=== PATIENT | male | born 1960 | race Caucasian/White ===

== ENCOUNTER → 2023-09-06 10:48 | Outpatient (BNVA) | payer MEDICARE, BC, MEDICAID, SELFPAY | PROVIDERS: Visit Provider Family Medicine Adult Medicine | DX: M54.2 Cervicalgia (principal); G89.29 Other chronic pain; M54.12 Radiculopathy, cervical region; Z87.828 Personal history of other (healed) physical injury and trauma | CPT/HCPCS: 80053; 80061; 84443; 85025 ==

== ENCOUNTER 2023-09-07 10:00 | Outpatient (CLI) | payer BC, MEDICARE, MEDICAID, SELFPAY ==
--- NOTE | 2023-09-07 10:10 | XR_ITS ---
WS: [id number] Exam: XR cervical spine min 6V [id number] Date/Time of Exam: 09/07/2023 10:22 AM Reason For Exam: neck pain No fracture or dislocation. Minimal degenerative anterolisthesis of C3 on C4 of about 2 mm. Also slig ht degenerative anterolisthesis of C4 on C5. No significant flexion or extension instability. Moderat e narrowing of the C5-6 disc. Normal paraspinal soft tissues. Narrowing of the bony neural foramina a t C3-4 on the RIGHT. The remaining neural foramina appear to be patent. The odontoid is intact. Mild to moderate facet DJD at all levels. IMPRESSION: 1. Mild degenerative anterolisthesis of C3 on C4 and C4 on C5. 2. No fracture or malalignment. No significant flexion or extension instability. 3. Degenerative changes as noted above.
== END 2023-09-07 10:01 | disposition home or self-care (01) ==
LOC: RAD 10:06
PROVIDERS: PCP Family Medicine Adult Medicine; Visit Provider Family Medicine Adult Medicine
DX: M54.12 Radiculopathy, cervical region; M54.2 Cervicalgia; M47.892 Other spondylosis, cervical region
CPT/HCPCS: 72052

== ENCOUNTER → 2023-10-20 08:25 | Outpatient (BNVA) | payer BC, MEDICARE, MEDICAID, SELFPAY | PROVIDERS: PCP Family Medicine Adult Medicine; Referring Provider Family Medicine Adult Medicine; Visit Provider Orthopaedic Surgery | DX: M54.2 Cervicalgia (principal) | CPT/HCPCS: 72050 ==

== ENCOUNTER 2023-11-24 16:12 | Outpatient (CLI) | payer MEDICARE, MEDICAID, SELFPAY ==
--- NOTE | 2023-11-24 16:45 | MR_ITS ---
WS: [id number] MRI CERVICAL SPINE NONCONTRAST HISTORY: neck pain COMPARISON: None available. Technique: Multiplanar, multisequence noncontrast imaging of the cervical spine. Normal cervical alignment with no compression fracture or significant disc space narrowing. Signal within the cervical cord is normal. Visualized posterior fossa is unremarkable. Craniocervical junction, C1 and C2 relationship, odontoid process and soft tissues are normal. C2-C3: Normal. C3-C4: Central disc protrusion is small. Small foraminal osteophytes. Very mild encroachment upon the ventral thecal sac. Mild bilateral foraminal stenosis. C4-C5: Small central disc protrusion with moderate facet arthritis. No central stenosis. Moderate to severe RIGHT and mild LEFT foraminal stenosis. Increased T2 signal in the RIGHT facet joint. C5-C6: Diffuse annular disc bulging with mild facet joint arthritis. Small disc osteophyte complex pa racentral and foraminal. Moderate bilateral foraminal stenosis, greater on the LEFT. Mild encroachmen t upon the paravertebral thecal sac. Mild central stenosis. C6-C7: Very mild disc bulging and osteophytosis. No stenosis. C7-T1: Shallow central disc protrusion. No stenosis. Paraspinal soft tissue are normal. MR/MR cervical spin wo con* [id number] IMPRESSION: 1. Multilevel osteophytosis and facet arthritis resulting in foraminal stenosi s. 2. C4-5: Small central disc protrusion. Moderate facet arthritis resulting in moderate to severe RIGHT and mild LEFT foraminal stenosis. 3. C5-6: Small disc osteophyte complex paracentral and foraminal. Moderate carmen ateral foraminal stenosis, greater on the LEFT. 4. C3-4: Mild bilateral foraminal stenosis. 5. Increased T2 signal in the RIGHT C4-5 facet joint. Consider acute synovitis /arthropathy.
== END 2023-11-24 16:13 | disposition home or self-care (01) ==
LOC: RAD 16:12
PROVIDERS: PCP Family Medicine Adult Medicine; Visit Provider Orthopaedic Surgery
DX: M47.892 Other spondylosis, cervical region (principal); M25.78 Osteophyte, vertebrae; M50.322 Other cervical disc degeneration at C5-C6 level; M50.323 Other cervical disc degeneration at C6-C7 level; M48.02 Spinal stenosis, cervical region
CPT/HCPCS: 72141

== ENCOUNTER 2024-07-10 08:41 | Outpatient (CLI) | payer MEDICARE, MEDICAID, SELFPAY ==
--- NOTE | 2024-07-10 09:00 | CT_ITS ---
WS: [id number] LDCT LUNG CANCER SCREENING HISTORY: lung cancer screening TECHNIQUE: Axial imaging performed from the apices to 1 cm below the costophrenic angles. Coronal and sagittal reformats are submitted with axial MIP series. All CT scans at [facility] use at least one of these dose optimization techniques: automated exposure control; mA and/or kV adjustment per patient size (includes targeted exams where dose is matched to clinical indication); or iterativ e reconstruction. DLP: 69.27 mGy.cm DIvol: Mean CTDIvol: 1.20 (mGy) COMPARISON: None available. Diagnostic quality: Satisfactory Lungs: Moderate pulmonary hyperexpansion. Paraseptal emphysema. 4 mm noncalcified nodule at the lingu la. 3 mm noncalcified nodule RIGHT upper lobe. 5 mm noncalcified nodule RIGHT middle lobe. 3 mm nonca lcified nodule RIGHT lung base, at the diaphragmatic surface. Noncalcified 4 mm nodule LEFT lower lob e. No endobronchial lesions. Heart: Normal size heart with no pericardial effusion.. Other findings: Scattered coronary artery calcifications. Normal size aorta and pulmonary artery. Jesica y minimal thoracic aorta atherosclerosis. 9 mm low-attenuation mass LEFT lobe of the liver is probabl y a small hemangioma or cyst. No adrenal mass. CT/CT lung screening [id number] IMPRESSION: LUNG-RADS: 2-Benign Appearance or Behavior FOLLOW UP: 12 Month: Continue annual screening with LDCT OTHER FINDINGS (S MODIFIER): None.
== END 2024-07-10 08:42 | disposition home or self-care (01) ==
PROVIDERS: PCP Family Medicine Adult Medicine; Visit Provider Family Medicine
DX: F17.219 Nicotine dependence, cigarettes, with unspecified nicotine-induced disorders (principal); Z12.2 Encounter for screening for malignant neoplasm of respiratory organs; R91.8 Other nonspecific abnormal finding of lung field; J43.9 Emphysema, unspecified; I25.84 Coronary atherosclerosis due to calcified coronary lesion; R16.0 Hepatomegaly, not elsewhere classified
CPT/HCPCS: 71271

== ENCOUNTER → 2024-07-24 12:42 | Outpatient (BNVA) | payer MEDICARE, MEDICAID, SELFPAY | PROVIDERS: PCP Family Medicine Adult Medicine; Visit Provider Orthopaedic Surgery | DX: M54.2 Cervicalgia (principal); M47.22 Other spondylosis with radiculopathy, cervical region | CPT/HCPCS: 99214 ==

== ENCOUNTER → 2024-08-07 13:02 | Outpatient (BNVA) | payer MEDICARE, MEDICAID, SELFPAY | PROVIDERS: PCP Family Medicine Adult Medicine; Referring Provider Family Medicine; Visit Provider Nurse Practitioner Family | DX: L82.1 Other seborrheic keratosis (principal); L81.4 Other melanin hyperpigmentation; L57.8 Other skin changes due to chronic exposure to nonionizing radiation; Z08 Encounter for follow-up examination after completed treatment for malignant neoplasm; Z85.828 Personal history of other malignant neoplasm of skin; D48.5 Neoplasm of uncertain behavior of skin | CPT/HCPCS: 11102; 99213 ==

== ENCOUNTER → 2024-10-08 13:44 | Outpatient (BNVA) | payer MEDICARE, MEDICAID, SELFPAY | PROVIDERS: PCP Family Medicine; Referring Provider Orthopaedic Surgery; Visit Provider Anesthesiology Pain Medicine | DX: M54.2 Cervicalgia (principal); G89.29 Other chronic pain | CPT/HCPCS: 99204 ==

== ENCOUNTER → 2024-10-23 13:16 | Outpatient (BNVA) | payer MEDICARE, MEDICAID, SELFPAY | PROVIDERS: PCP Family Medicine; Visit Provider Orthopaedic Surgery | DX: Z01.818 Encounter for other preprocedural examination (principal); M54.2 Cervicalgia; G89.29 Other chronic pain | CPT/HCPCS: 80053; 81001; 85025; 99214 ==

== ENCOUNTER → 2024-10-24 12:58 | Outpatient (BNVA) | payer MEDICARE, MEDICAID, SELFPAY | PROVIDERS: PCP Family Medicine; Visit Provider Dermatology | DX: L81.4 Other melanin hyperpigmentation (principal); D22.5 Melanocytic nevi of trunk; Z08 Encounter for follow-up examination after completed treatment for malignant neoplasm; Z85.828 Personal history of other malignant neoplasm of skin; C44.519 Basal cell carcinoma of skin of other part of trunk | CPT/HCPCS: 17262; 99213 ==

== ENCOUNTER → 2025-02-26 10:15 | Outpatient (BNVA) | payer MEDICARE, MEDICAID, SELFPAY | PROVIDERS: PCP Family Medicine; Visit Provider Nurse Practitioner Family | DX: L81.4 Other melanin hyperpigmentation (principal); D22.5 Melanocytic nevi of trunk; Z08 Encounter for follow-up examination after completed treatment for malignant neoplasm; Z85.828 Personal history of other malignant neoplasm of skin | CPT/HCPCS: 99213 ==

== ENCOUNTER → 2025-04-15 15:44 | Outpatient (BNVA) | payer MEDICARE, MEDICAID, SELFPAY | PROVIDERS: PCP Family Medicine; Visit Provider Family Medicine | DX: I10 Essential (primary) hypertension (principal); N40.0 Benign prostatic hyperplasia without lower urinary tract symptoms; R73.09 Other abnormal glucose | CPT/HCPCS: 80053; 83036; 84153 ==

== ENCOUNTER → 2025-05-13 15:19 | Outpatient (BNVA) | payer MEDICARE, MEDICAID, SELFPAY | PROVIDERS: PCP Family Medicine; Visit Provider Family Medicine | DX: Z12.5 Encounter for screening for malignant neoplasm of prostate (principal); N40.0 Benign prostatic hyperplasia without lower urinary tract symptoms | CPT/HCPCS: 80053; 84153 ==